=== PATIENT | female | born 1995 | race Caucasian/White ===

== ENCOUNTER 2021-03-29 19:33 | Emergency (ER) | payer OTHER, SELFPAY ==
[2021-03-29 20:15] VITALS: BP 131/91; PULSE 66; RESP 16; TEMP 36.6; O2SAT 99; BMI 24.3
[2021-03-29 21:36] LABS: MANUAL DIFF FLAG NO
[2021-03-29 21:44] LABS: Basophils Absolute Auto 0.1 X10*3/uL (0.0-0.2); Basophils Percent Auto 0.8 % (0-2); Eosinophils Absolute Auto 0.1 X10*3/uL (0.0-0.4); Eosinophils Percent Auto 1.4 % (0-4); Hemoglobin 12.7 g/dl (12.0-16.0); Imm Gran Abs Auto 0.02 X10*3/uL (0.00-0.03); Imm Gran Pct Auto 0.3 % (0.0-0.4); Lymphocytes Absolute Auto 1.6 X10*3/uL (1.2-4.9); Mean Corpuscular HGB Conc 32.6 g/dl (31.0-35.0); Mean Corpuscular Hemoglobin 29.5 pg (27.0-33.0); Mean Corpuscular Volume 90.5 fL (80-98); Mean Platelet Volume 10.2 fL (9.4-12.3); Monocytes Percent Auto 13.3 % (2-11); Neutrophils Absolute Auto 4.5 X10*3/uL (2.0-8.3); Neutrophils Percent Auto 62.2 % (45-73); Platelet Count 242 X10*3/uL (160-400); Red Blood Count 4.31 X10*6/uL (4.20-5.50); Red Cell Distribution Width 12.6 % (11.0-16.0); White Blood Count 7.2 X10*3/uL (4.8-10.8)
[2021-03-29 22:04] LABS: Anion Gap 9 (12-20); Blood Urea Nitrogen 11 mg/dL (9-16); Calcium 9.1 mg/dL (8.4-10.2); Carbon Dioxide 28 mmol/L (22-29); Chloride 108 mmol/L (96-108); Creatinine Clr Calc Pharmacy 77.3; Estimated Glomerular Filt Rate > 60; Glucose Random 91 mg/dL (60-115); Potassium 4.3 mmol/L (3.3-5.1); Sodium 141 mmol/L (135-145)
== END 2021-03-29 23:24 | disposition left against medical advice (07) ==
PROVIDERS: Emergency Provider Emergency Medicine; PCP Internal Medicine
DX: R51.9 Headache, unspecified (principal)
CPT/HCPCS: 36415; 80048; 85025; 99282; 99283

== ENCOUNTER 2023-12-17 16:04 | Emergency (ER) | payer OTHER, SELFPAY ==
[2023-12-17 16:45] VITALS: BP 106/74; PULSE 80; RESP 16; TEMP 36.4; O2SAT 99; BMI 32.0
--- NOTE | 2023-12-17 16:57 | ED_ITS ---
HPI - General Adult General Chief complaint: Skin/Abscess/Foreign Body Stated complaint: body rash/burning Time Seen by Provider: 12/17/23 16:57 Source: patient Mode of arrival: ambulatory Limitations: no limitations History of Present Illness ED Provider: Armando MEJIA HPI narrative: 28 yold female healthy presents to the ED for intermittent rash from end of october on abdomen, groin, and thighs. Patient was given antifungal treatment with no improvement. Patient states no new allergies, fever, chills, lip swelling, tongue swelling, fever, chill, new detergents, or new cosmetics. patient denies sensation of throat closing. Related Data Previous Rx's ?Medication ?Instructions ?Recorded clotrimazole-betamethasone 1 1 appl topical BID 2 weeks #45 12/17/23 %-0.05 % topical cream grams Allergies Allergy/AdvReac Type Severity Reaction Status Date / Time Penicillins [PENICILLINS] Allergy Unknown RASH Verified 12/17/23 16:50 Review of Systems Review of Systems: itchy rash on abdomen, groin, and thighs. Yes all other systems are reviewed and are negative [facility] Past Medical History Surgical History (Updated 03/29/21 @ 20:17 by Odette Palacio) History of appendectomy Social History Social History Advance Directives: No Advance Directives Information Provided: No Physical Exam ED Vital Signs: Vital Signs - 24 hr 12/17/23 16:45 12/17/23 17:21 Temperature 97.6 F 97.6 F Pulse Rate 80 80 Respiratory Rate 16 16 Blood Pressure 106/74 106/74 Pulse Oximetry 99 99 Oxygen Delivery Method Room Air Room Air BMI result Body Mass Index 32.0 Const General: cooperative, healthy appearing, comfortable, no acute distress, well developed, alert, awake and Physically active Orientation/consciousness: oriented to person, oriented to place, oriented to time and patient oriented x3 HENMT Other: negative for lip swelling or tongue swelling. Head: Yes normal to inspection, Yes No palpable skull fracture present, Yes no rmocephalic and Yes atraumatic Throat: Yes posterior oropharynx normal, Yes tonsils normal and Yes uvula midline Eyes General: appearance normal, both eyes and all related structures Neck Neck: Yes normal visual inspection, Yes full ROM, Yes no lymphadenopathy, Yes no meningeal signs, Yes trachea midline, Yes supple and No anterior neck swelling Chest Chest palpation & inspection: normal inspection of the chest and normal pal pation of entire chest wall Resp Effort & Inspection: normal respiratory effort and able to speak in complete sentences Auscultation: clear to auscultation bilaterally Cardio Jugular venous distension: no JVD Heart sounds: S1 normal heart sound present and S2 normal heart sound present GI Other: Positive for fungal tinea circular rash on abdomen Palpation (GI): Soft to palpation, not firm, nontender, no guarding and not rigid General: Yes no CVA tenderness Back/Spine/Pelvis Back: no CVA tenderness and No back tenderness Skin General skin exam: no rashes or lesions noted, elasticity normal and turgor normal Neuro General: oriented to person, oriented to place, oriented to time, patient oriented x3, gait normal, tone normal, moves all extremities, Normal light touch and pain sensation, no meningeal signs, no focal motor deficits, CN's II-XI intact bilaterally and normal sensation to monofilament Cranial nerves: Yes CN's II-XII intact bilaterally Extrem Other: positive for fungal rash on inner thights General: Yes normal to inspection and Yes full ROM Psych Appearance: grossly normal, well kempt and not disheveled Medical Decision Making Medical Decision Making MDM Narrative: 28 yold female presents to the ED for no improving rash since end of october. Patient states she was seen by urgent care this weekend diagnosed with tinea corporis was placed on clobetasol but she states tube was small and still having rash. Patient states having rash and abdomen, groin, and back of legs. Patient denies rash elsewhere. Patient denies any swelling of lips, drooling, chest pain or shortness of breath. Physical exam does not indicate anaphylaxis. Physical exam indicate fungal rash. Physical exam does not indicate psoriasis. Physical exam shows circular rash Differential Diagnosis Differential Diagnoses: The differential diagnosis associated with the presentation includes (Fungal rash, dermatitis, allergic reaction,) Independent Historian Clinical information obtained from an independent historian. History obtained from or confirmed by: Other (Patient) External Record Review External record reviewed: Other (Prior visits) Prescription Management I considered prescription management with: Other (Antifungal cream) Discharge Plan Discharge Clinical Impression: Tinea corporis Patient Disposition: Home, Self-Care Instructions: Tinea Corporis (ED) Additional Instructions: History physical exam indicate fungal rash. You will be discharged with a new cream. Recommend follow-up with [employer]. Return to ED for worsening rash, swelling of lips, swelling of tongue, drooling, change in voice, chest pain, shortness of breath, fever, chills, or any other concerning symptoms. Follow up with [facility], [address] [place] [address] [id number], [place] [address]. . Prescriptions: New clotrimazole-betamethasone 1-0.05 % cream 1 appl topical BID 14 Days Qty: 45 0RF Stand Alone Forms: Work/School Release Interventions: ED Discharge Assessment Last Done: 12/17/23 17:21 Discharge Date/Time: 12/17/23 17:21 Print Language: [place]
[2023-12-17 17:21] VITALS: BP 106/74; PULSE 80; RESP 16; TEMP 36.4; O2SAT 99
== END 2023-12-17 17:21 | disposition home or self-care (01) ==
PROVIDERS: Emergency Provider Emergency Medicine; PCP Internal Medicine
DX: B35.4 Tinea corporis (principal); R21 Rash and other nonspecific skin eruption
CPT/HCPCS: 99282; 99283